=== PATIENT | male | born 1975 ===

== ENCOUNTER 2023-09-28 05:18 | Day surgery (SDC) | payer OTHER | END 2023-09-28 13:05 | disposition home or self-care (01) | LOC: AMB-ENDOS 05:18 → CIR.AMB 13:30 | PROVIDERS: ATTEND Colon & Rectal Surgery | DX: D12.2 Benign neoplasm of ascending colon (principal); K57.30 Diverticulosis of large intestine without perforation or abscess without bleeding; K64.0 First degree hemorrhoids; Z86.010 Personal history of colon polyps; Z20.822 Contact with and (suspected) exposure to COVID-19 ==